=== PATIENT | female | born 1960 | race Caucasian/White ===

== ENCOUNTER 2024-07-09 08:00 | Outpatient (CLI) | payer OTHER, SELFPAY ==
--- NOTE | 2024-07-09 08:15 | MR_ITS ---
[facility] [address] [facility] [address] Phone:?[phone] Fax:?[phone] Referring Physician Information: Teodoro Catalan [address] [facility] [address] Phone:?[phone] Fax:?[phone] Patient:Nader Fay D.O.B:?1960 Sex:?Female Phone:?[phone] [facility] MRN:?[id number] Exam Date:?07/09/2024 EXAM: MRI of the RIGHT SHOULDER WITHOUT CONTRAST CLINICAL HISTORY: Right shoulder pain. Evaluate for rotator cuff and biceps pathology. COMPARISONS: Plain radiographs 07/15/2024. TECHNICAL: MRI sequences of the right shoulder: Axials Axials: PD, T2 Coronals: PD, STIR, T2 Sagittals: PD, T2 SEDATION: None CONTRAST: None FINDINGS: Bones: No fracture or destructive osseous lesion is seen. Coracoacromial arch: Acromion: No os acromiale. Type I-II acromion. Acromiohumeral space: The bony distance is unremarkable. Acromioclavicular joint: No acute injury, arthropathy, or inferior hypertrophy. Coracoclavicular ligament: The coracoclavicular ligament is intact. Rotator cuff muscles/tendons: Supraspinatus: Slight interstitial delamination within and bursal sided fraying and mild tendinopathy of the supraspinatus tendon. No muscular atrophy. Infraspinatus: The infraspinatus tendon and muscle are intact. Teres minor: The teres minor tendon and muscle are intact. Subscapularis: Undersurface fraying and moderate generalized attenuation of the superior and mid portions of the subscapularis tendon and mild to moderate atrophy of the superior and mid portions of the subscapularis muscle. Labrum and glenohumeral joint: There is fraying and tearing of most of the labrum. Trace glenohumeral joint effusion. No discrete chondral defect or subchondral bone marrow edema/cystic change is seen. There is mild edema-like signal within and thickening of the inferior glenohumeral ligament/glenohumeral joint capsule. Proximal biceps tendon, long head and short heads: Rupture of the proximal long head of the biceps tendon with distal tendon retraction distal to the bicipital groove. The short head is intact. Bursae: Subacromial/subdeltoid: Mild bursitis. Subcoracoid: No convincing subcoracoid bursal thickening/bursitis. IMPRESSION: 1. Rupture of the proximal long head of the biceps tendon with distal tendon retraction distal to the bicipital groove. 2. Undersurface fraying and moderate generalized attenuation of the superior and mid portions of the subscapularis tendon and mild to moderate atrophy of the superior and mid portions of the subscapularis muscle. 3. Slight interstitial delamination within and bursal sided fraying and mild tendinopathy of the supraspinatus tendon. No supraspinatus muscular atrophy. 4. Findings associated with adhesive capsulitis, but this is more of a clinical diagnosis. Correlate with active and passive range of motion. 5. Mild subacromial/subdeltoid bursitis. 6. Fraying and tearing of most of the labrum. 7. Trace glenohumeral joint effusion. RCB Electronically signed on 07/09/2024 11:45:00 AM by Finn Hammond M.D.
== END 2024-07-09 08:01 | disposition home or self-care (01) ==
LOC: MRI 08:01
PROVIDERS: Visit Provider Physician Assistant Surgical
DX: M25.511 Pain in right shoulder (principal); M75.101 Unspecified rotator cuff tear or rupture of right shoulder, not specified as traumatic; M75.01 Adhesive capsulitis of right shoulder; M75.51 Bursitis of right shoulder; M25.411 Effusion, right shoulder; Z02.6 Encounter for examination for insurance purposes
CPT/HCPCS: 73221